=== PATIENT | male | born 1980 | race Caucasian/White ===

== ENCOUNTER 2019-04-19 13:47 | Emergency (ER) | payer OTHER | END 2019-04-19 14:35 | disposition home or self-care (01) | LOC: JER 13:47 → JERFT 14:35 ==

== ENCOUNTER 2021-02-08 02:09 | Emergency (ER) | payer OTHER ==
[2021-02-08 02:23] VITALS: BP 131/88; PULSE 111; TEMP 98.1; BMI 26.6
[2021-02-08] MEDS ORDERED: ACETAMINOPHEN 500 MG TABLET (FP) PO ONE (02:23)
[2021-02-08] MEDS ORDERED: ACETAMINOPHEN 500 MG TABLET (FP) ONE (02:24)
== END 2021-02-08 02:31 | disposition home or self-care (01) ==
LOC: FER 02:09
DX: S00.33XA Contusion of nose, initial encounter (principal)
CPT/HCPCS: 99283-25